=== PATIENT | male | born 1950 | race African-American/Black ===

== ENCOUNTER 2021-08-29 20:54 | Emergency (ER) | payer OTHER ==
[~2021-08-29] VITALS: Ht 172.7 cm; Wt 95.3 kg
[2021-08-29 20:57] VITALS: BP 130/63
[2021-08-29] MEDS ORDERED: ELIQUIS5 MG PO (21:04)
[2021-08-29] MEDS ORDERED: CYCLOBENZAPRINE5 MG PO (21:36)
[2021-08-29] MEDS ORDERED: MOBIC7.5 MG PO (21:36)
== END 2021-08-29 21:45 | disposition home or self-care (01) ==
LOC: ER 20:54
DX: M54.2 Cervicalgia (principal); I10 Essential (primary) hypertension; E11.9 Type 2 diabetes mellitus without complications; E78.00 Pure hypercholesterolemia, unspecified; I48.91 Unspecified atrial fibrillation; J44.9 Chronic obstructive pulmonary disease, unspecified; Z79.899 Other long term (current) drug therapy; Z88.8 Allergy status to other drugs, medicaments and biological substances; Z91.040 Latex allergy status; V89.2XXA Person injured in unspecified motor-vehicle accident, traffic, initial encounter; Y93.89 Activity, other specified; Y92.89 Other specified places as the place of occurrence of the external cause; Y99.8 Other external cause status